=== PATIENT | female | born 1980 | race Caucasian/White ===

== ENCOUNTER 2018-04-01 11:00 | Day surgery (SDC) | payer BC ==
[~2018-04-01] VITALS: Ht 177.8 cm; Wt 81.7 kg
[2018-04-01] MEDS ORDERED: CYCL5TAB79 PO (11:30)
[2018-04-01] MEDS ORDERED: SITA100T15 PO (11:30)
[2018-04-01] MEDS ORDERED: GABA-532 PO (11:30)
[2018-04-01] MEDS ORDERED: NORT25CA PO (11:30)
[2018-04-01] MEDS ORDERED: METF500T7 PO (11:30)
[2018-04-01] MEDS ORDERED: ETHI1TAB25 PO (11:30)
[2018-04-01] MEDS ORDERED: SPIR25TA5 PO (11:30)
[2018-04-01] MEDS ORDERED: LEVO200T PO (11:30)
[2018-04-01] MEDS ORDERED: LIOT25TA8 PO (11:30)
[2018-04-01 11:35] VITALS: BP 128/83
[2018-04-01 13:53] VITALS: BP 133/81
== END 2018-04-01 14:07 | disposition home or self-care (01) ==
LOC: SSTAY O 11:00
PROVIDERS: ATTEND Radiology Diagnostic Radiology
DX: I89.8 Other specified noninfective disorders of lymphatic vessels and lymph nodes (principal); I44.0 Atrioventricular block, first degree; J45.998 Other asthma; E03.9 Hypothyroidism, unspecified; E11.9 Type 2 diabetes mellitus without complications; Z90.49 Acquired absence of other specified parts of digestive tract; Z87.19 Personal history of other diseases of the digestive system; Z72.89 Other problems related to lifestyle; Z86.19 Personal history of other infectious and parasitic diseases; Z79.891 Long term (current) use of opiate analgesic; Z79.84 Long term (current) use of oral hypoglycemic drugs; Z79.899 Other long term (current) drug therapy; Z98.890 Other specified postprocedural states
CPT/HCPCS: 38505; 76942